=== PATIENT | female | born 1945 | race Caucasian/White ===

== ENCOUNTER 2020-02-29 19:00 | Emergency (ER) | payer OTHER, SELFPAY ==
[~2020-02-29] VITALS: Ht 162.6 cm; Wt 81.6 kg
[~2020-02-29 19:00] MED LIST: ATORVASTATIN CA40 M1 PO; BAY PO; CLOPIDOGREL75 M1 PO; ZES5 PO
[2020-02-29 19:03] VITALS: Ht 162.6 cm; Wt 81.6 kg
[2020-02-29 21:08] VITALS: BP 142/91
== END 2020-02-29 21:08 | disposition home or self-care (01) ==
LOC: ED 19:00
DX: U07.1 COVID-19 (principal); I10 Essential (primary) hypertension
CPT/HCPCS: 36600; U0003